=== PATIENT | female | born 2000 | race Hispanic/Latino ===

== ENCOUNTER 2020-07-19 07:09 | Outpatient (CLI) | payer BC ==
[2020-07-19 18:35] LABS: #Eosinphils 0.1 10x3/uL (0.0-0.5); #Monocytes 0.4 10x3/uL (0.0-1.1); #Neutrophils 3.4 10x3/uL (1.5-8.4); %Basophils 0.7 % (0.0-2.0); %Eosinophils 1.3 % (0.0-6.0); %Lymphocytes 27.3 % (18.0-47.0); %Monocytes 7.4 % (0.0-10.0); %Neutrophils 63.1 % (40.0-75.0); Hemoglobin 13.8 g/dL (12.0-16.0); Mean Corpuscular Hemoglobin 30.1 PG (27.0-33.0); Mean Corpuscular Volume 91.1 fl (80.0-100.0); Platelet Count 275 10x3/uL (130-400); Red Blood Cell (RBC) Count 4.59 10x6/uL (3.90-5.20); White Blood Cell (WBC) Count 5.4 10x3/uL (4.5-11.0)
[2020-07-19 18:41] LABS: BHCG - Serum Negative (NEGATIVE); Pregs Control Background? CLEAR/WHITE (CLR/WHITE); Pregs Control Bar Appear? YES (CONTROL BAR)
[2020-07-20 09:27] LABS: SARS-CoV-2 MS2 Positive; SARS-CoV-2 N Gene Negative; SARS-CoV-2 S Gene Negative; SARS-CoV-2 by NAA Not Detected (NotDetected); SARS-CoV-2 orf1ab Negative
== END 2020-07-19 07:10 | disposition home or self-care (01) ==
LOC: LABBT 07:09
PROVIDERS: ATTEND Specialist
DX: Z01.812 Encounter for preprocedural laboratory examination (principal); Z20.828 Contact with and (suspected) exposure to other viral communicable diseases; K80.12 Calculus of gallbladder with acute and chronic cholecystitis without obstruction; R10.10 Upper abdominal pain, unspecified
CPT/HCPCS: 84703; 85025; 87635; U0003

== ENCOUNTER 2020-07-24 06:22 | Day surgery (SDC) | payer BC ==
[2020-07-21 11:29] VITALS: BMI 24.5
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
[2020-07-24] MEDS ORDERED: Fentanyl 100 MCG/2 ML VIAL ONE (06:44)
[2020-07-24] MEDS ORDERED: SUGAMMADEX SODIUM 200 MG/2 ML VIAL ONE (06:44)
[2020-07-24] MEDS ORDERED: Scopolamine 1.5 mg/72 hour Patch ONE (06:59)
[2020-07-24] MEDS ORDERED: Ketorolac Tromethamine 30 MG/ML VIAL ONE (06:59)
[2020-07-24] MEDS ORDERED: Acetaminophen 500 MG TAB ONE (06:59)
[2020-07-24] MEDS ORDERED: Levofloxacin 500 mg/D5W 100 ml Premix Bag ONE (06:59)
[2020-07-24] MEDS ORDERED: Lidocaine 1% w/Epinephrine 1:100K 20 ML VIAL ONE (08:09)
[2020-07-24] MEDS ORDERED: Bupivacaine 0.25% HCL 30 ML VIAL ONE (08:09)
--- NOTE | 2020-07-24 09:44 | OP ---
DATE OF PROCEDURE: 07/24/2020 PREOPERATIVE DIAGNOSES: Chronic cholecystitis, cholesterolosis, gallbladder wall densities. POSTOPERATIVE DIAGNOSES: Chronic cholecystitis, cholesterolosis, gallbladder wall densities. PROCEDURE PERFORMED: Laparoscopic video cholecystectomy (prior chevron incision with partial pancreatectomy as a child, [facility] [place]). ANESTHESIA: General. Local 0.5% Marcaine 30 mL mixed with 1% Xylocaine with epinephrine 20 mL, 30 mL mixture used. DESCRIPTION OF PROCEDURE: The patient was taken to the operating room, where under general anesthesia, abdomen was prepared with ChloraPrep and draped in routine fashion. Local anesthetic was infiltrated in the skin and subcutaneous tissue about each port site. Infraumbilical incision made, pneumoperitoneum to 15 mmHg was obtained with a Veress needle, replaced with a 5 port, video laparoscope inserted. The right upper quadrant was relatively free of adhesions. Using her old scar, chevron, segmental incision was made in right subcostal anterior axillary lines, midclavicular lines, and right subxiphoid, and a 5 mm port placed, another 5 mm port placed, and respectfully an 11 mm port placed. Fundus of the gallbladder grasped and retracted cephalad. Liver appeared to be normal. Infundibulum grasped and retracted laterally. Cystic artery and duct dissected free. Critical view obtained. Cystic artery and duct doubly clipped proximally and divided, gallbladder dissected free from liver bed, obtaining good hemostasis prior to division of final peritoneal attachments. Gallbladder and contents removed and submitted to Pathology. Good hemostasis assured. Irrigant and pneumoperitoneum evacuated. All instruments were removed and all skin incisions were approximated with interrupted subdermal 4-0 Monocryl, and Grimsley glue applied. The patient tolerated the procedure well. Job ID: [id number]
[2020-07-24] MEDS ORDERED: Lidocaine 1% PF 5 ML VIAL ONE (11:05)
[2020-07-24] MEDS ORDERED: Rocuronium Bromide 10 MG/ML (10ML VIAL) ONE (11:05)
[2020-07-24] MEDS ORDERED: Ondansetron PF 4 MG/2 ML Vial ONE (11:05)
[2020-07-24] MEDS ORDERED: PROPOFOL 200 MG/20 ML VIAL ONE (11:05)
[2020-07-24] MEDS ORDERED: Dexamethasone 20 MG/5 ML VIAL ONE (11:05)
== END 2020-07-24 10:45 | disposition home or self-care (01) ==
LOC: SDC 06:22
PROVIDERS: ATTEND Specialist
PROC: 0FT44ZZ Resection of Gallbladder, Percutaneous Endoscopic Approach (ICD-10-PCS; principal; 2020-07-24)
DX: K81.1 Chronic cholecystitis (principal); K82.8 Other specified diseases of gallbladder; Z88.0 Allergy status to penicillin
CPT/HCPCS: 88304; J1100; J1885; J1956; J2405; J2704; J3010; S0020